=== PATIENT | female | born 1960 | race African-American/Black ===

== ENCOUNTER → 2016-07-09 | Outpatient (CLI) | payer OTHER ==
[~2016-07-09] MED LIST: CHOLESTEROL MED; HYDROCHLOROTH12.5 M1 PO; LIPITOR 20 MG T20 M1 PO; NAPROSYN500 MG PO; NORVASC5 MG PO; TRAMADOL 50 MG50 MG PO; WATER PILL
== END ==
LOC: RAD 01:05
DX: Z12.31 Encounter for screening mammogram for malignant neoplasm of breast (principal)

== ENCOUNTER → 2016-07-30 | Outpatient (CLI) | payer OTHER ==
[~2016-07-30] VITALS: Ht 167.6 cm; Wt 106.1 kg
--- NOTE | ~2016-07-30 | P ---
[facility] [place] [address] PROCEDURE REPORT Name: ELENITA HASSAN Room #: [id number] Admission: 07/30/16 Attend Phys: Wicho Juan MD Discharge: Date of : 64 Report #: [id number] THIS REPORT FOR: //name// CC: Wicho PRIDE DO DATE OF SERVICE: 07/30/2016 BRIEF HISTORY: The patient is a 56-year-old woman with history of colon polyps. Three years ago, she had a 1.5 cm tubulovillous adenoma and a 1 cm tubular adenoma removed. She also had a benign-appearing rectal mass and biopsies were nondiagnostic. PREOPERATIVE DIAGNOSIS: History of advanced adenomas x 2. POSTOPERATIVE DIAGNOSES: 1. Multiple colon polyps. 2. Proximal ascending colon lipoma. 3. Moderate diverticulosis coli, greater in left colon than right colon. 4. A 2.5 cm benign-appearing submucosal mass lesion. MEDICATIONS: Deep sedation with propofol per anesthesia. SPECIMEN: 1. Midascending diminutive colon polyp. 2. Diminutive polyp, 60 cm. 3. Diminutive polyp at 50 cm. 4. Diminutive polyp at 40 cm. 5. Biopsy of submucosal mass lesion in the rectum. ESTIMATED BLOOD LOSS: 3 mL. PROCEDURE: Colonoscopy to cecum and terminal ileum with biopsy. FINDINGS: Prior to propofol sedation, procedure of colonoscopy discussed with the patient as well as potential risks and its complications. She indicates she understands and desires to proceed. DESCRIPTION OF PROCEDURE: With the patient in left lateral decubitus position, digital examination was completed which revealed no abnormalities. Subsequently, the O[employer] video colonoscope was introduced in the rectum, advanced under direct vision to the cecum. This was done with some difficulty as she had a tortuous redundant colon. However, the cecum was reached, identified by the ileocecal valve and appendiceal orifice. The ileocecal valve was seen, I could see the mouth of the ileocecal valve, but due to looping of scope and floppiness [facility] [address] [place] [address] PROCEDURE REPORT Name: ELENITA HASSAN Room #: REG FIORELLA Barraza#: [id number] Admission: 07/30/16 Attend Phys: Wicho Juan MD Discharge: Date of : 64 Report #: [id number] of ileocecal valve, we could not intubate the ileocecal valve. It had a lipomatous appearance. At that point, the scope was slowly withdrawn and careful circumferential views obtained. Upon withdrawal of the scope, the prep was noted to be excellent. The mucosa was normal limits, normal vascular pattern, normal light reflex. As we withdrew the scope, she was found to have a 1.5 cm lipoma in the proximal ascending colon with a smooth benign appearance and very typical yellow appearance. It was very typical and biopsies were felt not to be indicated. Diminutive polyps removed by biopsy from the mid ascending colon, at 60 cm, 50 cm and 40 cm. She was noted to have a few scattered diverticula in proximal colon and moderate diverticular disease of the sigmoid colon without endoscopic evidence of diverticulitis. As we withdrew the scope into the rectum, in the mid to distal rectum, the previously noted benign submucosal lesion once again identified. It was 2.5 cm and appeared to be stable with regards to size. Previous biopsies were nondiagnostic. Biopsies were obtained again. Upon retroflexion, no additional lesions were seen. Scope was withdrawn. The patient tolerated the procedure well. CONDITION OF THE PATIENT UPON DISCHARGE: Following procedure, the patient drowsy, aroused, conversant and will be discharged home when fully ambulatory. INSTRUCTIONS TO THE PATIENT AND FAMILY AT THE TIME OF DISCHARGE: We will follow up on biopsies obtained today. This appears to be benign and stable. However, biopsies are nondiagnostic. We will consider endoscopic ultrasound for further evaluation of this lesion. We will otherwise follow up on the polyps. If 3 or more adenomas, she is to return in 3 years; otherwise, she is to return in 5 years since she did have advanced adenomas. Last colonoscopy was 3 years ago. Withdrawal time from the cecum was 21 minutes. <ELECTRONICALLY SIGNED> By: Wicho Juan MD 07/30/16 1714 [id number] Wicho Juan MD /nt
== END | disposition home or self-care (01) ==
LOC: GI 08:50
DX: D12.2 Benign neoplasm of ascending colon (principal); D17.79 Benign lipomatous neoplasm of other sites; D12.5 Benign neoplasm of sigmoid colon; D12.4 Benign neoplasm of descending colon; K57.30 Diverticulosis of large intestine without perforation or abscess without bleeding; Q43.8 Other specified congenital malformations of intestine; K62.89 Other specified diseases of anus and rectum
CPT/HCPCS: 62110; 62900

== ENCOUNTER → 2017-07-13 | Outpatient (CLI) | payer OTHER | LOC: RAD 07-12 11:19 | DX: Z12.31 Encounter for screening mammogram for malignant neoplasm of breast (principal) ==

== ENCOUNTER → 2018-07-14 | Outpatient (CLI) | payer OTHER | LOC: RAD 15:02 | DX: Z12.31 Encounter for screening mammogram for malignant neoplasm of breast (principal) ==

== ENCOUNTER → 2019-05-31 | Outpatient (CLI) | payer OTHER | LOC: RAD 09:20 → ULTRA 09:20 → RAD 07-16 14:01 | DX: Z08 Encounter for follow-up examination after completed treatment for malignant neoplasm (principal); R92.2 Inconclusive mammogram ==

== ENCOUNTER → 2020-06-05 | Outpatient (CLI) | payer OTHER | LOC: BC 06-03 16:20 | DX: Z12.31 Encounter for screening mammogram for malignant neoplasm of breast (principal) ==